=== PATIENT | male | born 1945 | race Caucasian/White ===

== ENCOUNTER 2018-11-29 10:14 | Inpatient (IN) ==
[2018-11-29 10:58] LABS: BASO# 0.01 X1000 (0.0-0.2); BASO% 0.1 % (0.0-0.8); EOS# 0.15 X1000 (0.0-0.7); EOS% 1.5 % (0.0-10.0); HEMATOCRIT 35.2 % (42.0-52.0); HEMOGLOBIN 12.5 g/dL (14.0-18.0); IMM GRAN# 0.02 X1000 (0.0-0.04); IMM GRAN% 0.2 % (0.0-0.5); LYMPH% 13.9 % (20.5-51.1); MCH 29.8 PG (27-31); MCHC 35.5 g/dL (33-37); MCV 83.8 FL (81-99); MONO# 0.77 X1000 (0.11-0.59); MONO% 7.7 % (1.7-9.3); MPV 9.1 FL (7.4-10.4); NEUT# 7.69 X1000 (1.4-6.5); NEUT% 76.6 % (42.2-75.2); PLT 228 X1000 (130-400); RDW 12.4 % (11.5-14.5); WBC 10.04 X1000 (4.8-10.8)
[2018-11-29 11:10] LABS: INR 1.03; PROTIME 14.3 Seconds (11.0-16.0)
[2018-11-29 11:11] LABS: PTT 30.5 Seconds (22.3-41.8)
[2018-11-29 11:15] LABS: ESTIMATED GFR > 60
[2018-11-29 11:20] LABS: AGAP 13; ALB/GLOB RATIO 1.5; ALBUMIN 3.8 g/dL (3.5-5.0); ALKALINE PHOSPHATASE 61 U/L (32-122); BUN 19 mg/dL (8-22); CALCIUM 8.3 mg/dL (8.8-10.2); CHLORIDE 88 mmol/L (98-107); CK PROFILE 111 U/L (24-204); COSMO 258; CREATININE 0.9 mg/dL (0.7-1.2); GLUCOSE 167 mg/dL (70-104); GOT 20 U/L (10-34); GPT 19 U/L (10-44); POTASSIUM 3.2 mmol/L (3.5-5.1); SODIUM 125 mmol/L (136-145); TCO2 24 mmol/L (25-35); TOTAL BILIRUBIN 0.75 mg/dL (0.20-1.00); TOTAL PROTEIN 6.3 g/dL (6.3-8.3)
--- NOTE | 2018-11-29 11:25 | Diag Imaging Result Doc PS360 ---
CT HEAD W/O CONTRAST - 11/29/2018 INDICATION: AMS COMPARISON: None FINDINGS: The ventricles and sulci are normal in size and contour. No intracranial mass or hemorrhage. There is some minimal periventricular white matter chronic microvascular disease. The skull is intact. The sinuses, mastoids, and middle ears are clear. IMPRESSION: No acute disease. This exam was performed using automated exposure control, adjustment of mA or kV according to patient size, and/or use of iterative reconstruction technique Electronically signed by Dio Ray 11/29/2018 11:22 AM
--- NOTE | 2018-11-29 11:34 | Diag Imaging Result Doc PS360 ---
EXAM: CHEST-1 VIEW 11/29/2018 HISTORY: AMS TECHNIQUE: AP sitting chest at 1125 COMMENT: There is no evidence of acute cardiac or pulmonary disease. The heart size is within normal limits. There are no previous studies. IMPRESSION: No acute disease. Electronically signed by Nagi Horton 11/29/2018 11:32 AM
--- NOTE | 2018-11-29 12:05 | EKG Report ---
Test Performed on : 11/29/2018 10:24:35 AM Test Reason : ED. NO EKG ORDER FOR MUSE Blood Pressure : / mmHG Vent. Rate : 060 BPM Atrial Rate : 060 BPM P-R Int : 182 ms QRS Dur : 114 ms QT Int : 498 ms P-R-T Axes : 032 -27 001 degrees QTc Int : 498 ms Normal sinus rhythm. Moderate voltage criteria for LVH, may be normal variant Prolonged QT Abnormal ECG No previous ECGs available Unconfirmed Result
[2018-11-29 12:32] LABS: URINE SOURCE CATH
[2018-11-29 12:37] LABS: BILIRUBIN URINE NEGATIVE (NEGATIVE); BLOOD URINE NEGATIVE (NEGATIVE); COLOR YELLOW; GLUCOSE URINE NEGATIVE (NEGATIVE); KETONE URINE NEGATIVE (NEGATIVE); LEUKOCYTES URINE NEGATIVE (NEGATIVE); NITRITE URINE NEGATIVE (NEGATIVE); PH URINE 5.5; PROTEIN URINE TRACE mg/dL (NEGATIVE); SP GRAVITY URINE 1.008; TURBIDITY URINE CLEAR (CLEAR); UR EPITHELIAL CELLS <10 /HPF (<10); URINE BACTERIA NEGATIVE /HPF; URINE RBC <10 /HPF (<10); URINE WBC <10 /HPF (<10); UROBILINOGEN URINE NORMAL (NORMAL)
[2018-11-29] MEDS ORDERED: NS + KCL 40 MEQ 1,000 ML IV ONE ×2 (12:57→14:22)
--- NOTE | 2018-11-29 12:58 | PROVIDER DOCUMENTATION ---
This chart was entered by Chary Nuñez Scribe, acting as scribe for Michelle Melton MD. HPI-General Adult - General Chief Complaint: Generalized Pain Stated Complaint: Generalized pain Time Seen by Provider: 11/29/18 10:18 Source: patient, EMS Unable to obtain history due to:: altered - History of Present Illness -Gen Adult Nature of Presenting Problems: 73 yowm presents to the ed via ems with c/o gradual weakness to rt shoulder and arm post fall around a week ago. pt has old healing bruise on shoulder. pt sts this am he woke took his medication and had an episode of n/v x1. pt sts "I just don't feel good" per ems the home health nurse came yesterday and today and when she arrived this morning she sts pt was not acting himself. was more fatigued and wanted p[t checked for possible cva sx. per ems pt 2 months prior and pt has no family. pt has been in a slow steady decline since passing of . Location of Pain/Injury: reports: upper extremity (rt sided weakness) Quality of Pain: reports: aching (and weakness) Severity: reports: mild Onset/Duration: reports: other (sts fall was about a week ago but unsure of exact date) Context/Activities at Onset: reports: light activity Modifying Factors: improves with: nothing Associated Symptoms: reports: fatigue, joint pain (rt shoulder), nausea, vomiting (x1), weakness, other (mild confusion). denies: back/neck pain, chest pain, cough, diarrhea, fever/chills, shortness of breath Similar Symptoms Previously?: No Recently seen or treated by another doctor?: No Review of Systems - Adult - REVIEW OF SYSTEMS - ADULT ROS:: ems Constitutional: reports: kiara. denies: chills, fever Eyes: reports: no symptoms reported Ears, Nose, Mouth & Throat: reports: no symptoms reported Cardiovascular: reports: see HPI, edema. denies: chest pain, palpitations Respiratory: reports: no symptoms reported Gastrointestinal: reports: see HPI, nausea, poor appetite, vomiting (x1). denies: abdominal pain, diarrhea Genitourinary: reports: no symptoms reported Musculoskeletal: reports: see HPI, joint pain (rt shoulder old fall). denies: back pain, neck pain Integumentary: reports: no symptoms reported Neurological: reports: see HPI, other (slow rate of speech). denies: ataxia, dizziness/vertigo, headache/migraines, slurred speech, syncope, tremors Psychiatric: reports: no symptoms reported Endocrine: reports: no symptoms reported Hematologic/Lymphatic: reports: no symptoms reported Allergic/Immunologic: reports: no symptoms reported All Other Systems: Reviewed and Negative Past History - Adult - PAST MEDICAL HISTORY-ADULT Review of Records: reports: Old Records Reviewed, Nursing Assessment Review, Medications Reviewed, Social history reviewed & non-contributory. Major Childhood Illnesses: reports: denies history Cardiovascular: reports: denies history Respiratory: reports: denies history Gastrointestinal: reports: denies history Genitourinary: reports: denies history Musculoskeletal: reports: denies history Hand Dominance: Right Handed Neurological: reports: denies history Psychiatric: reports: denies history Endocrine/Immune: reports: denies history Other Conditions: reports: denies history - PRIOR SURGERIES/PROCEDURES Surgical/Procedure History: reports: reviewed, not pertinent - IMMUNIZATION STATUS Childhood Immunizations: See Nurse Assessment Flu Vaccine: See Nurse Assessment - FAMILY HISTORY Family History: reviewed, not pertinent - SOCIAL HISTORY Smoking: denies Substance Use: denies Living Situation: alone ( recently ) Physical Exam-General - PHYSICAL EXAM-ADULT Initial Vital Signs Reviewed: Yes - CONSTITUTIONAL General Appearance: alert, no apparent distress, obese - EYES Eyes: PERRL/EOMI, pink conjunctivae - HEAD, EARS, NOSE, MOUTH & THROAT HENMT: negative: moist mucous membranes (dry oral) - NECK Neck: full range of motion, normal inspection - RESPIRATORY Respiratory: chest non-tender, lungs clear, normal breath sounds - CARDIOVASCULAR Cardiovascular: normal peripheral pulses, bradycardia (56) - GASTROINTESTINAL (ABDOMEN) Abdominal Exam: normal bowel sounds, non tender, soft. negative: distended, guarding - LYMPHATIC Lymphatic: no adenopathy - MUSCULOSKELETAL Back Exam: normal inspection Extremity: no calf tenderness, normal capillary refill, pelvis stable, swelling (BLE edema), tenderness (rt shoulder with yellow bruising, healing well) - SKIN Integumentary: normal color, normal turgor, warm/dry, ecchymosis (rt shoulder), swelling (BLE edema), tenderness (rt shoulder) - NEUROLOGIC Neurologic: grossly normal, other (slow in speech) - PSYCHIATRIC Psych/Mental Status: normal mood/affect, normal thought content, normal thought process, oriented x 3 Progress - PLAN OF CARE/RESULTS Result Diagrams: 11/29/18 10:44 11/29/18 10:44 - REASSESSMENT Reassessment #1 Time Reassessed: 11:45 Status: improving Reassessment Comment: pt is resting in bed Reassessment #2 Time Reassessed: 12:54 (pt is sleeping) Status: unchanged - EKG 1 Time of EKG reading by physician:: 10:24 EKG Read and Signed by:: Michelle Melton EKG Interpretation (*Must complete 3 of following elements*): Abnormal Rate: 60 Rhythm: nsr [place]: normal QRS: LVH, other (prolonged QT) LA Interval: normal ST Wave: normal Prior EKG Comparison: no prior EKG - XRAY 1 XRAY: Bilateral XRAY Study: Chest Impression: See EMR Report (EXAM: CHEST-1 VIEW 11/29/2018 HISTORY: AMS TECHNIQUE: AP sitting chest at 1125 COMMENT: There is no evidence of acute cardiac or pulmonary disease. The heart size is within normal limits. There are no previous studies. IMPRESSION: No acute disease. Electronically signed by Nagi Horton 11/29/2018 11:32 AM 11/29/18 1132 Interpreting Physician: Nagi Horton MD Dictated Date/Time: 11/29/18 1130 cc: Michelle Melton MD; Isabel Howe) - CT/MRI 1 CT Study: Head Impression: See EMR Report (CT HEAD W/O CONTRAST - 11/29/2018 INDICATION: AMS COMPARISON: None FINDINGS: The ventricles and sulci are normal in size and contour. No intracranial mass or hemorrhage. There is some minimal periventricular white matter chronic microvascular disease. The skull is intact. The sinuses, mastoids, and middle ears are clear. IMPRESSION: No acute disease. This exam was performed using automated exposure control, adjustment of mA or kV according to patient size, and/or use of iterative reconstruction technique Electronically signed by Dio Ray 11/29/2018 11:22 AM 11/29/18 1122 Interpreting Physician: Dio Ray MD Dictated Date/Time: 11/29/18 1122 cc: Michelle Melton MD; Isabel Howe) - CONSULTS/PCP/HOSPITALIST Notification #1 *Consult/PCP/Hospitalist*: hospitalist dr ortiz Time Discussed: 12:55 (spoke with nevin) Consult Disposition: Admit Departure - Departure Date of Disposition Decision: 11/29/18 Time of Disposition Decision: 12:55 DIAGNOSIS: Hyponatremia Altered mental status Qualifiers: Altered mental status type: unspecified Qualified Code(s): R41.82 - Altered mental status, unspecified Disposition: ADMITTED INPATIENT 09 Certified Medical Emergency: Emergent Condition: Stable Additional Freetext Instructions: ED Follow Up Instructions: You have been treated by a care provider in the Emergency Department. These instructions are being provided to you so you can have an understanding of how to care for yourself upon discharge. Upon discharge from the Emergency Department, you are responsible for making arrangements for follow-up care by a physician of your choice. Take all prescribed medications as directed. Return to the Emergency Department immediately for any new or worsening symptoms. You may call the Physician Referral phone number at [phone] to obtain a list of Physicians who are taking new patients. Referrals and Follow-Ups: Isabel Howe CRNP [Primary Care Provider] - - Critical Care Note This patient required my direct & personal management of CC.: Yes Total Time (mins): 36 Critical Care Statement: This patient required my direct personal management to treat or rule out processes, the absence of which, could potentiallly result in sudden, clinically significant life or limb threatening deterioration. Attestation - Physician/ RICHARD Attestation Patient care was provided by Advanced Practice Provider:: No The physician spent face to face time with patient:: Yes Advanced Practice Provider documentation review:: Supervising physician onsite and consulted in the evaluation and care of this patient. The physician did have a face to face encounter with the patient. This chart was documented by the indicated scribe, (Chary Nuñez Scribe) and accurately reflects the services I performed and decisions made by me, Michelle Melton MD, as attested by the provider's signature.
[2018-11-29] MEDS ORDERED: ZOFRAN IV PRN (13:01)
[2018-11-29] MEDS ORDERED: KLOR-CON PO ONE (14:22)
[2018-11-29] MEDS ORDERED: PHENERGAN PO PRN (15:14)
--- NOTE | 2018-11-29 15:33 | HISTORY AND PHYSICAL ---
PRIMARY CARE PROVIDER: Isabel Howe CHIEF COMPLAINT: Right arm shoulder weakness and then apparently the home health felt like he was more confused. HISTORY OF PRESENT ILLNESS: Mr. Jerson Cannon is a 73-year-old male who has apparently never been admitted here, and information was difficult to obtain through him, but what I could get is that he has a history of hypertension, diabetes mellitus type 2, congestive heart failure, hypothyroidism. States that about a month ago he had a fall on his bathroom floor and hit his right shoulder, and ever since then, he has been unable to move that right arm or shoulder. There is noted to be a healing yellowish bruise on that right shoulder, and he facial grimaces to moving that right shoulder. It does not appear to be fractured, but we will get an x- ray. The confusion could very well be due to the hyponatremia that is found. The cause of the hyponatremia is currently unknown. It could be congestive heart failure. We are going to get an echocardiogram to evaluate for that. We are also going to have to treat his hypokalemia. He states that he lives at home alone. His recently about 2 months ago from a heart attack. His daughter when she was 39, and he essentially does not have any family that are living or even close by. Currently in an electric wheelchair and is seen by [facility]. He is afraid to drive, so he states he has not been eating so much because he is afraid to get out and drive to buy anything. He states he has been taking his medications as prescribed. He is in this electric wheelchair due to chronic back pain and bilateral knee pain. We will admit to the Medical Floor, get an echocardiogram, give him some fluids. PAST MEDICAL HISTORY: 1. Hypertension. 2. Diabetes mellitus type 2. 3. Hyperlipidemia. 4. Congestive heart failure. 5. Coronary artery disease. 6. Questionable atrial fibrillation, but the patient is unsure. 7. GERD. 8. Hypothyroidism. 9. BPH. 10.Anxiety and depression. 11.Chronic back pain and bilateral knee pain. PAST SURGICAL HISTORY: 1. Multiple back surgeries. 2. Cholecystectomy. SOCIAL HISTORY: Quit smoking in 1969 but prior to that smoked at least 3 packs per day since the age of 8. Denies alcohol. Lives at home alone. His only daughter at age 39, and his 2 months ago from a myocardial infarction. He is in an electric wheelchair and has home health who comes to see him. FAMILY HISTORY: He has 3 brothers and 1 sister, all had coronary artery disease. Both his mother and father had coronary artery disease, and his mother had Alzheimer's. ALLERGIES: Quite complex. Amitriptyline, baclofen, Buprenex, Stadol, Keflex, fentanyl, Neurontin, cortisone, Isordil, Lamictal, Keppra, methadone, Nubain, Talwin, Trileptal, Pravachol, prednisone, primidone, Avandia, Carafate, tapentadol and all steroids. HOME MEDICATIONS: 1. Flomax 0.4 mg p.o. nightly. 2. Synthroid 50 mcg p.o. nightly. 3. Rosuvastatin calcium 10 mg p.o. nightly. 4. Xanax 1 mg p.o. twice daily p.r.n. 5. Avodart 0.5 mg p.o. daily. 6. Coreg 25 mg p.o. twice daily. 7. Dexilant 60 mg p.o. daily. 8. Lexapro 10 mg p.o. daily. 9. Lisinopril/hydrochlorothiazide 20/25 one tab p.o. twice daily. 10.Robaxin 750 mg p.o. t.i.d. p.r.n. 11.Phenergan 25 mg p.o. every 8 hours p.r.n. 12.Ropinirole HCl 1 mg p.o. twice daily. 13.Oxycodone myristate 36 mg p.o. twice daily, that is extended release capsule sprinkle. REVIEW OF SYSTEMS: A 14-point review of systems are complete, and all are negative except for those mentioned in the above HPI. He did state that he had one episode of vomiting this morning with severe nausea. PHYSICAL EXAMINATION: VITAL SIGNS: Temperature 98.2, heart rate 64, respiratory rate 19, blood pressure 139/60, O2 saturation is 98% on room air. GENERAL: Mr. Jerson Cannon is a 73-year-old male. He is in no acute distress. He is able to answer questions appropriately. HEENT: Atraumatic and normocephalic. Pupils are equal, round and reactive to light. Extraocular movements were intact. Mucous membranes are moist. NECK: Trachea midline. CARDIOVASCULAR: S1 and S2. Regular rate and rhythm. No rubs, gallops or murmurs. He has about + 2 lower extremity edema, +2 radial pulses, +2 dorsalis pedal pulses. Difficult to assess for JVD. Negative for carotid bruits. PULMONARY: Clear to auscultation with bilateral breath sounds. No accessory muscle use or work of breathing noted. GASTROINTESTINAL: Soft, nontender and nondistended. Positive bowel sounds x4. EXTREMITIES: Decreased range of motion, specifically in the right arm due to pain. Generalized weakness of about 4/5 but decreased in the right upper extremity. NEUROLOGICAL: Alert and oriented x3. Follows commands. Sensory is decreased in the lower extremities. SKIN: Warm, dry and intact. Bruising on the right shoulder. DIAGNOSTIC DATA: White blood cells 10,000, hemoglobin 12, hematocrit 35, platelet count 228. INR is 1.03. PTT is 30.5. Sodium is 125, potassium 3.2, BUN is 19, creatinine 0.9, glucose 167, calcium 8.3. Bilirubin is 0.75, AST is 20, ALT is 19, alkaline phosphatase 61. CK is 111. Troponin less than 0.01. ProBNP is 101. Lactate 1.2. Urinalysis with trace protein. IMAGING: Head CT with no acute disease. Chest x-ray with no acute disease. EKG is normal sinus rhythm, rate 60, QTC is 498. ASSESSMENT AND PLAN: 1. Metabolic encephalopathy. Should improve with electrolyte replacement. He is already somewhat improved since he has been here. 2. Hyponatremia with hypokalemia. We will do normal saline with 40 of potassium chloride at 50 an hour. 3. Congestive heart failure. No signs of exacerbation at this time. We will check an echocardiogram. 4. Diabetes mellitus type 2. Pattern blood glucoses and sliding scale insulin. 5. Hyperlipidemia. Continue home medications. 6. Hypothyroidism. Continue Synthroid. 7. Benign prostatic hypertrophy. Continue BPH medications. 8. Anxiety and depression. Continue home medications. 9. Chronic back pain and bilateral knee pain. Continue with the patient's extended release oxycodone. 10.DVT prophylaxis with SCDs. Dictated by VANITA Woodward for Noam Clahoun MD Addendum: Patient seen and examined by myself. Agree with VANITA note. It reflects my assessment and plan. Patient is being admitted to hospital for metabolic encephalopathy. BMP reveled electrolytes derangement so will replenish them and check BMP tomorrow. No signs of CHF at this time. Will continue with home medications for the rest of chronic medical conditions. cc: VANITA Woodward MD MTDD
--- NOTE | 2018-11-29 16:10 | Diag Imaging Result Doc PS360 ---
EXAM: SHOULDER-RIGHT HISTORY: right shoulder pain after fall TECHNIQUE: Right shoulder portable two views COMPARISON: None. FINDINGS: No fracture. No dislocation. No separation at the acromioclavicular joint. There is superior joint space narrowing. IMPRESSION: No acute bony injury. Likely chronic rotator cuff tear. Electronically signed by Gamal Glasgow 11/29/2018 4:07 PM
--- NOTE | 2018-11-29 16:26 | ECHO REPORT ---
ORDER DATE: 11/29/2018 ECHOCARDIOGRAPHIC MEASUREMENTS: 1. Interventricular septum 1.5 2. Left ventricular posterior wall 1.5. 3. Diastolic diameter 5.5. SUMMARY: 1. Aortic valve leaflets were trileaflet, sclerosed. 2. Mitral valve leaflets are normal. There is mitral annular calcification. 3. Tricuspid valve was normal. There is mild tricuspid regurgitation. Peak velocity across the tricuspid valve was 2.5 m/sec. 4. Pulmonary artery systolic pressure of 35 mmHg. 5. Normal left ventricular cavity size. Concentric left ventricular hypertrophy. Estimated ejection fraction of 60% to 65%. There is associated diastolic dysfunction. 6. Peak velocity across the aortic valve was 2.9 m/sec. There is no aortic stenosis, there is aortic sclerosis associated with moderate aortic regurgitation. 7. There is no pericardial effusion or obvious intracardiac mass or thrombus. cc: MD Monique Akers CRNP
[2018-11-29] MEDS: ROBAXIN PO PRN (16:29)
[2018-11-29] MEDS: PRINZIDE 10/12.5MG PO SCH (20:35)
[2018-11-29] MEDS: CRESTOR PO SCH (20:35)
[2018-11-29] MEDS: OXYCODONE MYRISTATE PO SCH (20:35)
[2018-11-29] MEDS: SYNTHROID PO SCH (20:35)
[2018-11-29] MEDS: REQUIP PO SCH (20:36)
[2018-11-29] MEDS: FLOMAX PO SCH (20:36)
[2018-11-29] MEDS: HUMALOG SUBQ SCH (20:36)
[2018-11-29] MEDS: COREG PO SCH (20:36)
[2018-11-30] MEDS: HUMALOG SUBQ SCH ×4 (06:00→22:46)
[2018-11-30 06:43] LABS: BASO# 0.01 X1000 (0.0-0.2); BASO% 0.1 % (0.0-0.8); EOS# 0.21 X1000 (0.0-0.7); EOS% 2.5 % (0.0-10.0); HEMATOCRIT 36.3 % (42.0-52.0); HEMOGLOBIN 12.6 g/dL (14.0-18.0); IMM GRAN# 0.02 X1000 (0.0-0.04); IMM GRAN% 0.2 % (0.0-0.5); LYMPH# 1.93 X1000 (1.2-3.4); MCH 29.7 PG (27-31); MCHC 34.7 g/dL (33-37); MCV 85.6 FL (81-99); MONO% 11.9 % (1.7-9.3); MPV 8.9 FL (7.4-10.4); NEUT# 5.23 X1000 (1.4-6.5); NEUT% 62.3 % (42.2-75.2); PLT 216 X1000 (130-400); RBC 4.24 XMIL (4.7-6.1); RDW 12.8 % (11.5-14.5)
[2018-11-30 06:59] LABS: INR 1.06; PROTIME 14.7 Seconds (11.0-16.0)
[2018-11-30 07:00] LABS: PTT 34.2 Seconds (22.3-41.8)
[2018-11-30 07:36] LABS: AGAP 7; ALB/GLOB RATIO 1.5; ALBUMIN 3.7 g/dL (3.5-5.0); ALKALINE PHOSPHATASE 62 U/L (32-122); BUN 15 mg/dL (8-22); CALCIUM 9.1 mg/dL (8.8-10.2); CHLORIDE 97 mmol/L (98-107); COSMO 267; CREATININE 0.8 mg/dL (0.7-1.2); ESTIMATED GFR > 60; GLUCOSE 123 mg/dL (70-104); GOT 14 U/L (10-34); GPT 16 U/L (10-44); MAGNESIUM 1.8 mg/dL (1.5-2.7); POTASSIUM 3.8 mmol/L (3.5-5.1); SODIUM 132 mmol/L (136-145); TCO2 28 mmol/L (25-35); TOTAL BILIRUBIN 0.58 mg/dL (0.20-1.00); TOTAL PROTEIN 6.2 g/dL (6.3-8.3)
[2018-11-30] MEDS: PRINZIDE 10/12.5MG PO SCH ×2 (08:21→22:54)
[2018-11-30] MEDS: REQUIP PO SCH ×2 (08:22→22:44)
[2018-11-30] MEDS: DEXILANT PO SCH (08:22)
[2018-11-30] MEDS: AVODART PO SCH (08:22)
[2018-11-30] MEDS: LEXAPRO PO SCH (08:22)
[2018-11-30] MEDS: ROBAXIN PO PRN ×2 (08:22→22:54)
[2018-11-30] MEDS: COREG PO SCH ×2 (08:22→22:44)
[2018-11-30] MEDS: OXYCODONE MYRISTATE PO SCH (08:24)
[2018-11-30] MEDS ORDERED: NAPROSYN PO ONE (08:36)
--- NOTE | 2018-11-30 10:04 | PROGRESS NOTE ---
DATE: 11/30/2018 SUBJECTIVE: Patient seems to be doing better. He is alert. He is following commands. He is answering all my questions. He came in with a sodium level of 125 and potassium level of 3.2, which are much better now. Potassium is normal and sodium is 132. This patient lives by himself, it looks like his a little bit ago. No family members to take care of him, he is using an electric wheelchair, I talked to him about intermediate placement but he refused. I do believe he has some home health. OBJECTIVE: Vital Signs: Temperature 97.5 degrees, pulse 62, respiratory rate 18, blood pressure 168/67, oxygen saturation 98 on room air. HEENT: Head normocephalic. No trauma. PERRLA. Neck: Supple. No JVD. Central trachea. Chest: Clear to auscultation. No wheezing. No rales. Painful to palpation at the level of the right shoulder and also to mobilization. He has an old bruise that is almost gone on the right shoulder. Apparently, he fell about 1 month to 1-1/2 months ago. Abdomen: Soft, obese, nontender, nondistended. No hepatosplenomegaly. Extremities: No edema. No clubbing. No cyanosis. Pain to mobilization at the level of the knees. Apparently this patient has severe osteoarthritis and as per the patient, he needs a bilateral knee replacement. Neurological: This patient is alert he is oriented. He is following commands. He is answering all my questions. LABORATORY DATA: WBC 8.4, hemoglobin 12.6, hematocrit 36.3, platelets 216,000. Sodium 132, potassium 3.8, chloride 97, bicarbonate 28, BUN 15, creatinine 0.8, glucose 123, calcium 9.1. AST 14, ALT 16, alkaline phosphatase 862. ASSESSMENT AND PLAN: 1. Metabolic encephalopathy, resolved. Electrolyte imbalance is better today, he is only complaining of right shoulder pain. 2. Hyponatremia, this patient still is hyponatremic but much better compared with yesterday. He received [*]fluid and the sodium increased from 125 to 132. 3. Hypokalemia, resolved. 4. History of congestive heart failure, not in exacerbation. Echocardiogram has been done and showed an ejection fraction of 60 to 65 percent but there is associated diastolic dysfunction. Pulmonary arterial pressure around 35 mmHg. 5. Type 2 diabetes. Continue to pattern blood sugar and sliding scale insulin. 6. Hyperlipidemia. Continue home medication. 7. Hypothyroidism continue Synthroid. 8. History of benign prostatic hypertrophy. Continue with the same management. 9. Depression and anxiety. Continue home medication. He recently lost his . 10. Chronic back pain and bilateral knee pain due to osteoarthritis. As per the patient, he needs knee replacement. Will continue with the same management. He uses an electric wheelchair at home. 11. Deep vein thrombosis prophylaxis with sequential compression devices. This patient is living by himself. When I ask him who takes care of the groceries, he said that sometimes the lady from home health takes care of the groceries. but is not constant. I talked to him about a long-term placement like a half-way but he refused it, since he has been having severe right shoulder pain, I have requested an evaluation by Orthopedic Surgery department, x-ray did not show any acute abnormality or fracture but probably he can be has some kind of rotator cuff injury or just inflammation, we will let the Orthopedic Surgery department to evaluate and treat the patient. cc: Dustin Cooper MD
--- NOTE | 2018-11-30 14:51 | CONSULTATION ---
DATE OF CONSULTATION: 11/30/2018 CHIEF COMPLAINT: Right shoulder pain. HISTORY OF PRESENT ILLNESS: Mr. Cannon is a 73-year-old male, who came in with some shoulder pain, but also some confusion. He was admitted per the hospitalist service for metabolic encephalopathy and hyponatremia. He is in congestive heart failure. Orthopedics was consulted to look at his shoulder. He says he fell about a month ago and injured the shoulder. Nurse says this has been bothering him a pretty good bit. He also complains of some neck pain that radiates down the arm, and he also complains of some numbness in the ring and small fingers. PAST MEDICAL HISTORY: Hypertension, diabetes type 2, congestive heart failure, coronary artery disease, reflux, anxiety and depression. PAST SURGICAL HISTORY: He had multiple back surgeries in the past. Cholecystectomy. SOCIAL HISTORY: He denies any smoking or alcohol use. FAMILY HISTORY: Positive for coronary artery disease. ALLERGIES: Allergies are to amitriptyline, baclofen, Buprenex, Stadol, Keflex, Fentanyl, Neurontin, cortisone, Isordil, Lamictal, Keppra, methadone, Nubain, Talwin, Trileptal, Pravachol, prednisone, primidone, Avandia, Carafate, Tapentadol. HOME MEDICATIONS: Per the medical record. REVIEW OF SYSTEMS: As above. PHYSICAL EXAMINATION: General: Well-developed male lying in his hospital bed in no acute distress. Head and Neck: Normocephalic, atraumatic. Respirations: Nonlabored breathing. Cardiovascular: Regular pulse. Abdomen: Nondistended. Extremities: Right upper extremity exam: He has some tenderness to palpation of the shoulder. There was a little bit of ecchymoses laterally. He cannot quite get all the way up to forward flexion of 90 degrees. He is weak on external rotation. He has a little bit of numbness to the small finger and the ring finger, but all his hand intrinsics are intact. He has 2+ radial pulse. RADIOGRAPHS: Right shoulder radiograph shows what looks like a high-riding humeral head. No fracture seen. Not a lot of osteoarthritic changes seen. ASSESSMENT: 1. Right rotator cuff arthropathy. 2. Right cervical neck pain with possible radiculopathy. 3. Right cubital tunnel syndrome. PLAN: I discussed with Mr. Walker about his shoulder pain, his neck pain and his numbness. I think he is getting a little bit of cubital tunnel syndrome that is causing the numbness. From the shoulder standpoint, I think it is probably a rotator cuff tear. That is probably a pretty massive tear since he does not move his shoulder very well and then, concerning the neck pain, I bet he is getting a little bit of either stenosis or some radiculopathy pushing on some of his cervical nerves coming out, and it is causing that pain down the arm. I know he has had a history of back surgeries in the past. All this we can work up in the outpatient setting. So, from an orthopedic standpoint, I would be okay with him being discharged. He can follow up with me in clinic after he is discharged, and we can begin working through all these problems with the shoulder. Right now I really would not even recommend a lot of therapy on the shoulder; that may make his pain a little bit worse. We can get therapy to work with him a little bit mainly on just range of motion of the shoulder. I probably would not do a lot of strengthening because he is not going to be able to really do it. Today, I will work on range of motion and then, once he is discharged, he can follow with me in clinic. cc: Humberto Irby MD
[2018-11-30] MEDS: SYNTHROID PO SCH (22:44)
[2018-11-30] MEDS: FLOMAX PO SCH (22:44)
[2018-11-30] MEDS: CRESTOR PO SCH (22:44)
[2018-11-30] MEDS: TYLENOL PO PRN (22:54)
[2018-11-30] MEDS: XANAX PO PRN (22:54)
[2018-12-01] MEDS: OXYCODONE MYRISTATE PO SCH ×3 (01:14→21:33)
[2018-12-01] MEDS: HUMALOG SUBQ SCH ×4 (06:26→21:33)
[2018-12-01 06:44] LABS: BASO# 0.02 X1000 (0.0-0.2); BASO% 0.3 % (0.0-0.8); EOS# 0.25 X1000 (0.0-0.7); EOS% 3.8 % (0.0-10.0); HEMATOCRIT 36.7 % (42.0-52.0); HEMOGLOBIN 12.5 g/dL (14.0-18.0); IMM GRAN# 0.02 X1000 (0.0-0.04); IMM GRAN% 0.3 % (0.0-0.5); LYMPH# 2.36 X1000 (1.2-3.4); LYMPH% 35.5 % (20.5-51.1); MCH 29.4 PG (27-31); MCHC 34.1 g/dL (33-37); MCV 86.4 FL (81-99); MONO# 0.71 X1000 (0.11-0.59); MONO% 10.7 % (1.7-9.3); MPV 9.1 FL (7.4-10.4); NEUT# 3.28 X1000 (1.4-6.5); NEUT% 49.4 % (42.2-75.2); PLT 224 X1000 (130-400); RBC 4.25 XMIL (4.7-6.1); RDW 12.7 % (11.5-14.5); WBC 6.64 X1000 (4.8-10.8)
[2018-12-01 07:11] LABS: AGAP 9; BUN 13 mg/dL (8-22); CALCIUM 9.3 mg/dL (8.8-10.2); CHLORIDE 97 mmol/L (98-107); COSMO 269; CREATININE 0.8 mg/dL (0.7-1.2); ESTIMATED GFR > 60; GLUCOSE 115 mg/dL (70-104); HEMOGLOBIN A1C 6.1 % (4.8-6.0); POTASSIUM 3.8 mmol/L (3.5-5.1); SODIUM 134 mmol/L (136-145); TCO2 28 mmol/L (25-35)
[2018-12-01] MEDS: COREG PO SCH ×2 (08:08→21:21)
[2018-12-01] MEDS: REQUIP PO SCH ×2 (08:08→21:22)
[2018-12-01] MEDS: LEXAPRO PO SCH (08:08)
[2018-12-01] MEDS: DEXILANT PO SCH (08:08)
[2018-12-01] MEDS: AVODART PO SCH (08:08)
[2018-12-01] MEDS: PRINZIDE 10/12.5MG PO SCH ×2 (08:08→21:22)
[2018-12-01] MEDS: NORVASC PO SCH (08:12)
[2018-12-01] MEDS ORDERED: NAPROSYN PO ONE (11:55)
--- NOTE | 2018-12-01 12:23 | PROGRESS NOTE ---
DATE: 12/01/2018 SUBJECTIVE: As per the patient, he feels a little bit better. He is alert and he is oriented. His lab work looks better as well. Sodium level is 134 today. Glucose level controlled, hemoglobin A1c 6.1. He is still complaining of severe right shoulder pain. He has been evaluated by Orthopedic Surgery department, which will re-evaluate this patient as an outpatient. It looks like after taking a 1-time dose of naproxen p.o. yesterday, it helped a little bit with the shoulder pain so I will repeat the same dose today. Kidney function is stable. This patient lives by himself. Nobody is taking care of him. He is not able to walk due to severe osteoarthritis. He does not want to go to a care home or rehabilitation center. His blood pressure is still elevated at 188/74. I will put this patient on a new treatment today, and I will monitor. Hopefully tomorrow, we will talk to the manager social services to see if we can help this patient better and do a safe discharge. OBJECTIVE: Vital signs: Temperature 98.3 degrees, pulse 69, respiratory rate 18, blood pressure 188/74, oxygen saturation 97 on room air. HEENT: Head normocephalic. No trauma. PERRLA. Neck: Supple. No JVD. No masses. Central trachea. Chest: Clear to auscultation. No wheezing. No rales. Painful to palpation at the level of the right shoulder, also to mobilization. He has an old bruise that is almost gone on the right shoulder as well from previous trauma. Abdomen: Soft, obese, nontender, nondistended. No hepatosplenomegaly. Extremities: No edema. No clubbing. No cyanosis. Pain to mobilization at the level of the knees. Apparently he has severe osteoarthritis, and as per the patient, he needs to get bilateral knee replacement. Neurological: The patient is alert and oriented x3. No focal neurological deficits at this moment, but weakness mostly at the level of the lower extremities. LABORATORY: WBC 6.6, hemoglobin 12.5, hematocrit 36.7, platelets 224,000. Sodium 134, potassium 3.8, chloride 97, bicarbonate 28, BUN 13, creatinine 0.8, glucose 115, calcium 9.3. Hemoglobin A1c 6.1. ASSESSMENT AND PLAN: 1. Metabolic encephalopathy, resolved. Electrolyte imbalance is better now. 2. Hyponatremia. Level is 132. He already received IV fluids. He looks hydrated. 3. Hypokalemia, resolved. 4. History of congestive heart failure (CHF), not in exacerbation. Echocardiogram has been done and showed an ejection fraction of 60% to 65%, but there is an associated diastolic dysfunction. Pulmonary arterial pressure is around 35 mmHg. 5. Type 2 diabetes. Continue with pattern of blood sugar and sliding scale insulin. 6. Hyperlipidemia. Continue with home medications. 7. Hypothyroidism. Continue with Synthroid. 8. History of BPH. Continue with the same treatment. 9. Hypertension. His blood pressure is still high. I will add amlodipine to his medications, only during the day and depending on his blood pressure in the afternoon, probably I will give him an extra dose of amlodipine and make it twice a day. 10. Depression and anxiety. Aware. 11. Chronic back pain and bilateral knee pain due to severe osteoarthritis. As per the patient, he needs knee replacements. We will continue with the same management. He uses an electric wheelchair at home, but he has no company or somebody taking care of him. 12. Deep vein thrombosis (DVT) prophylaxis with sequential compression devices (SCDs). 13. Right shoulder pain. Orthopedic Surgery will continue monitoring this patient as an outpatient. 14. Right eye blindness. Aware. cc: Dustin Cooper MD
[2018-12-01] MEDS: TYLENOL PO PRN ×2 (15:45→21:22)
[2018-12-01] MEDS: ROBAXIN PO PRN ×2 (15:46→21:22)
[2018-12-01] MEDS: FLOMAX PO SCH (21:22)
[2018-12-01] MEDS: XANAX PO PRN (21:22)
[2018-12-01] MEDS: SYNTHROID PO SCH (21:22)
[2018-12-01] MEDS: CRESTOR PO SCH (21:22)
[2018-12-02] MEDS: HUMALOG SUBQ SCH ×2 (06:41→13:21)
[2018-12-02 07:02] LABS: BASO# 0.02 X1000 (0.0-0.2); BASO% 0.3 % (0.0-0.8); EOS# 0.31 X1000 (0.0-0.7); EOS% 4.8 % (0.0-10.0); HEMATOCRIT 37.2 % (42.0-52.0); HEMOGLOBIN 12.7 g/dL (14.0-18.0); IMM GRAN# 0.03 X1000 (0.0-0.04); IMM GRAN% 0.5 % (0.0-0.5); LYMPH# 1.85 X1000 (1.2-3.4); LYMPH% 28.4 % (20.5-51.1); MCH 29.3 PG (27-31); MCHC 34.1 g/dL (33-37); MCV 85.9 FL (81-99); MONO# 0.47 X1000 (0.11-0.59); MONO% 7.2 % (1.7-9.3); MPV 9.1 FL (7.4-10.4); NEUT# 3.83 X1000 (1.4-6.5); NEUT% 58.8 % (42.2-75.2); PLT 240 X1000 (130-400); RBC 4.33 XMIL (4.7-6.1); RDW 12.8 % (11.5-14.5); WBC 6.51 X1000 (4.8-10.8)
[2018-12-02 07:27] LABS: AGAP 11; BUN 14 mg/dL (8-22); CALCIUM 9.2 mg/dL (8.8-10.2); CHLORIDE 95 mmol/L (98-107); COSMO 268; CREATININE 0.7 mg/dL (0.7-1.2); ESTIMATED GFR > 60; GLUCOSE 122 mg/dL (70-104); POTASSIUM 3.6 mmol/L (3.5-5.1); SODIUM 133 mmol/L (136-145); TCO2 27 mmol/L (25-35)
[2018-12-02] MEDS: TYLENOL PO PRN (09:31)
[2018-12-02] MEDS: NORVASC PO SCH (09:32)
[2018-12-02] MEDS: XANAX PO PRN (09:32)
[2018-12-02] MEDS: LEXAPRO PO SCH (09:32)
[2018-12-02] MEDS: REQUIP PO SCH (09:32)
[2018-12-02] MEDS: DEXILANT PO SCH (09:32)
[2018-12-02] MEDS: AVODART PO SCH (09:32)
[2018-12-02] MEDS: ROBAXIN PO PRN (09:32)
[2018-12-02] MEDS: COREG PO SCH (09:32)
[2018-12-02] MEDS: PRINZIDE 10/12.5MG PO SCH (09:32)
[2018-12-02] MEDS: OXYCODONE MYRISTATE PO SCH (09:33)
[2018-12-02] MEDS ORDERED: NAPROSYN PO ONE (10:50)
[2018-12-02 12:37] VITALS: BP 163/84
--- NOTE | 2018-12-02 15:17 | DISCHARGE SUMMARY ---
ADMISSION DATE: 11/29/2018 DISCHARGE DATE: 12/02/2018 DISCHARGE DIAGNOSES: 1. Metabolic encephalopathy, resolved. 2. Hyponatremia. 3. Hypokalemia, resolved. 4. History of possible diastolic congestive heart failure. 5. Type 2 diabetes. 6. Hyperlipidemia. 7. Hypothyroidism. 8. History of benign prostatic hyperplasia. 9. Hypertension. 10. Depression and anxiety. 11. Chronic back pain and bilateral knee pain due to severe osteoarthritis. 12. Right shoulder pain due to recent trauma. 13. Right eye blindness. CONSULTS: Orthopedic surgery department, Dr. Humberto Irby. PROCEDURES PERFORMED: 1. Chest x-ray dated 11/29/2018. Impression: No acute disease 2. Echocardiogram dated 11/29/2018. Summary: Aortic valve leaflets, sclerosed, mitral valve leaflets are normal. There is mitral annular calcification. Tricuspid valve was normal. Mild tricuspid regurgitation. Pulmonary artery systolic pressure of 35 mmHg. Normal left ventricular cavitary size, concentric left ventricular hypertrophy, with an ejection fraction of 60 to 65 percent. There is an associated diastolic dysfunction. No obvious intracardiac mass or thrombus. 3. Right shoulder x-ray dated 11/29/2018. Impression: No acute bony abnormality. Likely chronic rotator cuff tear. HOSPITAL COURSE: A 73-year-old, male admitted on 11/29/2018 due to mental status changes, history hypertension, diabetes, diastolic CHF, hypothyroidism. Apparently, a month ago, he fail on his back bathroom floor and hit his right shoulder and since then he was not able to move his right arm. X-ray did not show any fracture. He came in confused, hyponatremic and hypokalemic as well. This patient leaves at home alone. His around 2 months ago or so from a heart attack. His daughter when she was 39 years old, and essentially, he does not have any close family members taking care of him. I think he has a niece in this area. Currently, he is using an electrical an electric wheelchair and he has been followed by [facility]. He is afraid to drive. So apparently he has not been eating and drinking too because of that. It looks like some persons including the home health lady is helping this edith with the groceries. He received some IV fluids. The next day he was completely awake, alert, and oriented x3. He was complaining of severe shoulder pain. Echocardiogram showed an ejection fraction of 60 to 65 percent with some concentric left ventricular hypertrophy, but no big issues, diastolic dysfunction Orthopedic Surgery evaluated this patient. They will monitor this patient as an outpatient. They believe this patient has a right rotator cuff arthropathy with right cervical neck pain with possible radiculopathy and right cubital tunnel syndrome. He has been getting pain medication and the pain is getting better as well as he has been getting therapy. He does not want to go to a rehab center, long-term facility or long-term. He wants to go home. I had a conversation with the social economist and it looks like [facility] with social work job titles support will evaluate this patient and they will investigate current basic living skills and resource assessment. The patient agree with that. Laboratory has been much better. Hemoglobin A1c is 6.1 without any kind of treatment so I will continue with the same management and I will let the primary care doctor take care of that. Blood sugar has been controlled. Upon discharge, the patient was in a stable medical condition, tolerating p.o., completely alert and oriented x3. DISCHARGE PHYSICAL EXAMINATION: Vital Signs: Temperature 97.8 degrees, pulse 77, respiratory rate 18, blood pressure 163/84, oxygen saturation 98% on room air. HEENT: Head normocephalic. No trauma. PERRLA. He cannot see from his right eye. Neck: Supple. No JVD. Central trachea. Chest: Clear to auscultation. No wheezing. No rales. Painful to palpation at the level of the right shoulder and also mobilization. He has an old bruise that is almost gone from previous trauma. Abdomen: Soft, obese, nontender, nondistended. No hepatosplenomegaly. Extremities: No edema. No clubbing. No cyanosis. Pain to mobilization at the level of the knees. Apparently, he has severe osteoarthritis and as per the patient, he needs to get a bilateral knee replacement. Neurological: The patient is alert and oriented x3. No motor deficits. LABORATORY: WBC 6.5, hemoglobin 12.7, hematocrit 37.2, platelets 240,000. Sodium 133, potassium 3.6, chloride 95, bicarbonate 27, BUN 14, creatinine 0.7 glucose 122. Calcium 9.2. DISCHARGE MEDICATIONS: 1. Tamsulosin 0.4 mg p.o. at bedtime. Rosuvastatin 10 mg p.o. at bedtime, ropinirole 1 mg p.o. b.i.d., methocarbamol 750 mg p.o. t.i.d. as needed, lisinopril hydrochlorothiazide 20/25 mg tablet p.o. b.i.d., levothyroxine 50 mcg p.o. at bedtime, escitalopram 10 mg p.o. daily. Dutasteride 0.5 mg p.o. daily. 2. Dexilant 60 mg p.o. daily. 3. Carvedilol 25 mg p.o. b.i.d. 4. Oxycodone: He used to take 36 mg q.12 hours and I have decreased the dose to 18 q.12 hours. That has been explained to the patient, and he agreed with this. 5. Amlodipine 5 mg p.o. b.i.d. 6. Alprazolam 1 mg p.o. b.i.d. as needed for anxiety. FOLLOWUP: Follow up with [facility] in 2 weeks. Also, follow with his primary care doctor in 1 week. TIME DISCHARGING THIS PATIENT: Forty minutes. cc: Dustin Cooper MD
[2018-12-02] MEDS ORDERED: NORVASC PO SCH (21:00)
== END 2018-12-02 15:27 | disposition home health service (06) | DRG 640 ==
LOC: SUPCPDRO → ED 10:14 → SUATTDRO 14:30 → 3N 14:30
PROVIDERS: ATTEND Internal Medicine
CPT/HCPCS: 51701; 70450; 71010; 71045; 73030; 80048; 80053; 81001; 82550; 82948; 83036; 83605; 83735; 83880; 84484; 85025; 85610; 85730; 93005; 93306; 94761; 94799; 96365; 97110; 97161; 97530; 99285; A9270; J1815; P9612; XXXXX